=== PATIENT | male | born 1960 | race Caucasian/White ===

== ENCOUNTER → 2016-10-01 | Outpatient (CLI) | payer SELFPAY ==
[~2016-10-01] MED LIST: ASPIRIN EC81 MG PO; BUSPAR 10MG10 MG PO; CATAPRES 0.1MG0.1 MG PO; CIPRO500 MG PO; CLARITIN10 M2 PO; DULERA 100 MCG8.8 GM PO; ECOTRIN81 MG PO; EFFIENT10 MG PO; FLOMAX 0.4 MG0.4 MG PO; FLONASE ALLER15.8 ML; IPRAT-ALBUT 0.5-3 ML INH; LEVAQUIN750 MG PO; LISINOPRIL20 MG PO; MEDROL4 MG PO; METOPROLOL TAR100 MG PO; NEURONTIN 100100 MG PO; NITROSTAT 0.40.4 MG SL; NITROSTAT0.4 MG SL; NORVASC 5 MG TAB5 MG PO; NOVOLIN 70100 UNIT/1 SQ; OCUVITE LUTEIN1 EACH PO; PLAVIX 75 MG TA75 MG PO; PRAVACHOL80 MG PO; PROBIOTIC1 EAC2 PO; PROSCAR 5 MG TAB5 MG PO; PROSCAR5 MG PO; TESSALON PERLE100 MG PO; TOUJEO SQ; TYLENOL 325MG325 MG PO; URINARY PAIN RE95 MG PO; VICTOZA 3-0.6 MG/0.1 SQ; VITAMIN B-121000 MC3 PO
[2016-10-01 13:57] LABS: BUN/CREATININE RATIO 16 (0-10)
== END ==
LOC: LAB 12:57
PROVIDERS: Hospitalist
DX: N18.2 Chronic kidney disease, stage 2 (mild) (principal); N25.81 Secondary hyperparathyroidism of renal origin
CPT/HCPCS: 36415; 80053; 82570; 83970; 84100; 84156

== ENCOUNTER → 2017-01-04 | Outpatient (CLI) | payer OTHER ==
[2017-01-04 13:16] LABS: BUN/CREATININE RATIO 16 (0-10)
[2017-01-04 13:21] LABS: URINE TOTAL PROTEIN 67 mg/dl
== END ==
LOC: LAB 12:05
PROVIDERS: Internal Medicine Nephrology
DX: N18.2 Chronic kidney disease, stage 2 (mild) (principal); N25.81 Secondary hyperparathyroidism of renal origin
CPT/HCPCS: 36415; 80053; 82570; 83970; 84100; 84156

== ENCOUNTER → 2020-10-12 | Outpatient (CLI) | payer MEDICARE, OTHER ==
[~2020-10-12] MED LIST changes: +ADALAT CC30 MG PO; +ADALAT CC60 MG PO; +ALDACTONE 25MG25 MG PO; +ALDACTONE25 MG PO; +ATHENOL325 MG PO; +BREO ELLIPTA 21 EACH INH; +BUSPIRONE HCL10 MG PO; +BYDUREON P2 MG/0.65 SQ; +CARDURA 2MG TAB2 MG PO; +CARDURA8 MG PO; +CLARITIN 10MG T10 MG PO; +CLARITIN10 MG PO; +CLOPIDOGREL75 MG PO; +CRESTOR10 MG PO; +CRESTOR20 MG PO; +CRESTOR40 MG PO; +DULERA 100 MCG8.8 GM INH; +FENOFIBRATE160 MG PO; +FINASTERIDE5 MG PO; +FLONASE 0.05% N16 GM; +HUMALOG100 UNIT/2 SQ; +HYDROXYZINE HCL25 MG PO; +LATANOPROST 0.7.5 ML EYEBOTH; +LEVAQUIN500 MG PO; +LEVEMIR100 UNIT/1 SQ; +LISINOPRIL40 MG PO; +LOPRESSOR100 MG PO; +NIFEDIPINE ER30 M1 PO; +OCUVITE ADULT1 EAC1 PO; +PLAVIX75 MG PO; -PRAVACHOL80 MG PO; +REPATHA 140MG/ML SQ; +TIZANIDINE HCL2 M1 PO; +TRESIBA SQ; +TRESIBA100 UNIT/1 SQ; +VENTOLIN HFA 66.7 GM INH; +VITAMIN B-122500 MCG SL; +VITAMIN D250000 UNIT PO; +ZANAFLEX2 MG PO; +[UNRECOGNIZED DRUG - OTHER] SQ
== END ==
LOC: SLEEP 21:30
DX: G47.30 Sleep apnea, unspecified (principal); R53.83 Other fatigue; G47.33 Obstructive sleep apnea (adult) (pediatric); R40.0 Somnolence; I11.0 Hypertensive heart disease with heart failure; I50.9 Heart failure, unspecified; E78.00 Pure hypercholesterolemia, unspecified; E11.9 Type 2 diabetes mellitus without complications; E66.9 Obesity, unspecified; Z79.01 Long term (current) use of anticoagulants; Z79.82 Long term (current) use of aspirin
CPT/HCPCS: 95811

== ENCOUNTER → 2020-11-21 | Outpatient (CLI) | payer MEDICARE, OTHER | LOC: EXRD 11:00 | DX: M54.5 Low back pain (principal); M47.816 Spondylosis without myelopathy or radiculopathy, lumbar region | CPT/HCPCS: 72110 ==

== ENCOUNTER → 2020-12-08 | Outpatient (CLI) | payer MEDICARE, OTHER | LOC: LAB 11:06 | PROVIDERS: Internal Medicine Nephrology | DX: N18.30 Chronic kidney disease, stage 3 unspecified (principal) | CPT/HCPCS: 36415; 80053; 82570; 84156 ==

== ENCOUNTER → 2021-09-25 | Outpatient (CLI) | payer MEDICARE | LOC: HEART 5 08:03 | DX: R07.9 Chest pain, unspecified (principal); R06.02 Shortness of breath; I25.10 Atherosclerotic heart disease of native coronary artery without angina pectoris; I63.9 Cerebral infarction, unspecified | CPT/HCPCS: 78452; A9502; J2785 ==

== ENCOUNTER → 2021-10-16 | Outpatient (CLI) | payer MEDICARE | LOC: HEART 5 09:36 | DX: R94.39 Abnormal result of other cardiovascular function study (principal); I25.10 Atherosclerotic heart disease of native coronary artery without angina pectoris; I08.8 Other rheumatic multiple valve diseases | CPT/HCPCS: 93306 ==

== ENCOUNTER 2021-11-30 17:04 | Inpatient (IN) | payer MEDICARE, MEDICAID ==
[~2021-11-30] VITALS: Ht 170.2 cm; Wt 126.5 kg
[~2021-11-30 17:04] MED LIST changes: -BUMETANIDE1 MG PO; -CARVEDILOL25 MG PO; -NIFEDIPINE ER90 MG PO; -POTASSIUM CHLO10 ME2 PO; -TRULICITY0.75 MG/0. SQ
[2021-11-30 18:02] LABS: HEMOGLOBIN 12.5 gm/dl (14.0-17.5); RED BLOOD COUNT 4.43 M/UL (4.20-5.50); WHITE BLOOD COUNT 7.5 K/UL (4.5-11.0)
[2021-12-01 05:32] LABS: HEMOGLOBIN 11.4 gm/dl (14.0-17.5); RED BLOOD COUNT 4.06 M/UL (4.20-5.50); WHITE BLOOD COUNT 7.6 K/UL (4.5-11.0)
[2021-12-01] MEDS ORDERED: NIFEDIPINE ER90 MG PO (11:36)
[2021-12-01] MEDS ORDERED: TRULICITY0.75 MG/0. SQ (11:36)
[2021-12-01] MEDS ORDERED: CARVEDILOL25 MG PO (11:36)
[2021-12-01] MEDS ORDERED: IPRAT-ALBUT 0.5-3 ML INH (11:37)
[2021-12-02 16:51] LABS: HEMOGLOBIN 12.8 gm/dl (14.0-17.5); WHITE BLOOD COUNT 7.8 K/UL (4.5-11.0)
[2021-12-02 16:53] LABS: RED BLOOD COUNT 4.58 M/UL (4.20-5.50)
[2021-12-03 03:37] LABS: HEMOGLOBIN 12.5 gm/dl (14.0-17.5); RED BLOOD COUNT 4.49 M/UL (4.20-5.50); WHITE BLOOD COUNT 7.5 K/UL (4.5-11.0)
[2021-12-03] MEDS ORDERED: POTASSIUM CHLO10 ME2 PO (13:53)
[2021-12-03] MEDS ORDERED: BUMETANIDE1 MG PO (13:53)
--- NOTE | 2021-12-03 13:58 | NUR ---
Patient ambulated in room without O2 in place. Oxygen sat dropped to 90 after several vigorous laps of the room. Patient and family state that this degree of ambulation does not typically take place at home.
[2021-12-04 04:15] LABS: HEMOGLOBIN 11.7 gm/dl (14.0-17.5); RED BLOOD COUNT 4.2 M/UL (4.20-5.50); WHITE BLOOD COUNT 7.2 K/UL (4.5-11.0)
[2021-12-05 07:05] LABS: HEMOGLOBIN 12.3 gm/dl (14.0-17.5); RED BLOOD COUNT 4.38 M/UL (4.20-5.50); WHITE BLOOD COUNT 6.1 K/UL (4.5-11.0)
--- NOTE | 2021-12-05 14:09 | NUR ---
CALLED REPORT TO FELICIANO AT [facility] AT 1401.
== END 2021-12-05 14:15 | disposition home health service (06) | DRG 291 ==
LOC: ER1 17:04 → CDU 21:18 → MED SURG 4 21:18
PROVIDERS: Internal Medicine; Preventive Medicine Occupational Medicine; ADMIT Internal Medicine
PROC: 5A09357 Assistance with Respiratory Ventilation, Less than 24 Consecutive Hours, Continuous Positive Airway Pressure (ICD-10-PCS; principal; 2021-12-01)
PROC: 5A09357 Assistance with Respiratory Ventilation, Less than 24 Consecutive Hours, Continuous Positive Airway Pressure (ICD-10-PCS; 2021-12-02)
PROC: 5A09357 Assistance with Respiratory Ventilation, Less than 24 Consecutive Hours, Continuous Positive Airway Pressure (ICD-10-PCS; 2021-12-03)
PROC: 5A09357 Assistance with Respiratory Ventilation, Less than 24 Consecutive Hours, Continuous Positive Airway Pressure (ICD-10-PCS; 2021-12-04)
DX: I13.0 Hypertensive heart and chronic kidney disease with heart failure and stage 1 through stage 4 chronic kidney disease, or unspecified chronic kidney disease (principal); J96.01 Acute respiratory failure with hypoxia; I50.33 Acute on chronic diastolic (congestive) heart failure; Z68.41 Body mass index [BMI] 40.0-44.9, adult; I47.2 Ventricular tachycardia; N18.30 Chronic kidney disease, stage 3 unspecified; E11.22 Type 2 diabetes mellitus with diabetic chronic kidney disease; G47.33 Obstructive sleep apnea (adult) (pediatric); J44.9 Chronic obstructive pulmonary disease, unspecified; E78.5 Hyperlipidemia, unspecified; Z20.822 Contact with and (suspected) exposure to COVID-19; E66.01 Morbid (severe) obesity due to excess calories; I25.10 Atherosclerotic heart disease of native coronary artery without angina pectoris; Z95.1 Presence of aortocoronary bypass graft; Z99.81 Dependence on supplemental oxygen; Z82.49 Family history of ischemic heart disease and other diseases of the circulatory system; Z86.73 Personal history of transient ischemic attack (TIA), and cerebral infarction without residual deficits; Z79.4 Long term (current) use of insulin; Z88.8 Allergy status to other drugs, medicaments and biological substances; Z90.89 Acquired absence of other organs; Z98.890 Other specified postprocedural states; Z82.3 Family history of stroke; Z83.3 Family history of diabetes mellitus; Z79.899 Other long term (current) drug therapy; Z79.82 Long term (current) use of aspirin
CPT/HCPCS: 0240U; 36415; 36600; 71045; 80048; 80053; 81001; 82550; 82553; 82565; 82803; 82962; 83036; 83690; 83735; 83880; 84439; 84443; 84484; 85025; 85027; 85652; 86140; 87086; 93005; 94640; 94660; 94664; 94760; 96374; 97116; 97161; 99285; J0360; J1644; J3475; J7030; P9047

== ENCOUNTER → 2021-11-30 | Outpatient (CLI) | payer MEDICARE ==
[~2021-11-30] MED LIST changes: +BUMETANIDE1 MG PO; +CARVEDILOL25 MG PO; -CRESTOR10 MG PO; +NIFEDIPINE ER90 MG PO; +POTASSIUM CHLO10 ME2 PO; +TRULICITY0.75 MG/0. SQ; +VITAMIN B-121000 MCG PO; +VITAMIN D21250 MCG PO
== END ==
LOC: EXRD 13:12
DX: R06.00 Dyspnea, unspecified (principal); I51.7 Cardiomegaly; J90 Pleural effusion, not elsewhere classified
CPT/HCPCS: 71046

== ENCOUNTER 2022-02-06 12:40 | Emergency (ER) | payer MEDICARE, OTHER ==
[~2022-02-06 12:40] MED LIST changes: +BUMETANIDE1 MG PO; +CARVEDILOL25 MG PO; +NIFEDIPINE ER90 MG PO; +POTASSIUM CHLO10 ME2 PO; +TRULICITY0.75 MG/0. SQ
[2022-02-06 13:19] LABS: HEMOGLOBIN 12.9 gm/dl (14.0-17.5); RED BLOOD COUNT 4.6 M/UL (4.20-5.50)
[2022-02-06 13:46] LABS: BUN/CREATININE RATIO 12 (0-10)
[2022-02-06] MEDS ORDERED: CEPHALEXIN500 MG PO (18:31)
== END 2022-02-06 17:10 | disposition home or self-care (01) ==
LOC: ER1 12:40
PROVIDERS: Emergency Medicine
DX: U07.1 COVID-19 (principal); N17.9 Acute kidney failure, unspecified; E11.9 Type 2 diabetes mellitus without complications; J44.9 Chronic obstructive pulmonary disease, unspecified; Z95.5 Presence of coronary angioplasty implant and graft
CPT/HCPCS: 71045; 80053; 81001; 82550; 82553; 84484; 85025; 93005; 96360; 99284; U0002